=== PATIENT | female | born 1970 | race Caucasian/White ===

== ENCOUNTER 2023-03-07 12:20 | Emergency (ER) | payer OTHER, SELFPAY ==
[2023-03-07 12:26] VITALS: BP 103/78; PULSE 74; RESP 18; TEMP 36.6; O2SAT 98; BMI 27.3
--- NOTE | 2023-03-07 13:55 | ED_ITS ---
HPI - Eye Problem General Date Seen: 03/07/23 Chief complaint: Eye Problems Stated complaint: Block spot in vision Time Seen by Provider: 03/07/23 12:22 Source: patient and family Mode of arrival: ambulatory Limitations: no limitations History of Present Illness HPI Narrative: Patient is a 53-year-old female who for the past 5 days has something in her left vision, when she goes her left eye her right eye is entirely normal, it was bigger but now is smaller almost feels like little dots, whenever she looks around. She notes that there is no pain, redness she has no history getting any thing in her eye, she called the nurses line today they recommended she come to the emergency room despite her saying that they should just have her be seen in eye clinic. He does not wear contacts had Lasix done a number years ago, denies a history of cardiac disease, previous strokes, is a smoker however. She does not have a headache, has had no nausea vomiting, no numbness tingling weakness in the hands or the feet, any problems with the speaking, balance, or other issues. Actually improved somewhat since she has gone through the 5 days. chief complaint: other Onset (ago): day(s) Onset description: sudden Location: left eye Eye Symptoms: blurry vision Place: home Mechanism: none Severity: mild Associated symptoms: none Treatments Prior to Arrival: none Related Data Allergies Allergy/AdvReac Type Severity Reaction Status Date / Time No Known Drug Allergies Allergy Verified 03/07/23 12:26 Review of Systems Status of ROS: Reports: 10 or more systems reviewed and unremarkable except as noted in History and below PFSH PFS Social History Smoking Status: Current every day smoker What tobacco products do you use: cigarettes Smoking packs per day: 1 Smoking cigarettes per day: 20.0 Years smoked: 34 Smoking pack-years: 34.00 Do you use any of these nicotine containing products: None Second hand tobacco smoke exposure: Yes How often do you have a drink containing alcohol: monthly or less How many standard drinks containing alcohol do you have on a typical day: 1 or 2 How often do you have six or more drinks on one occasion: Never AUDIT-C Alcohol total score: 1 Non-prescribed substance use: denies use service: No Exam Narrative: Exam Narrative: Patient is seen and assessed, her visual acuity in the right eye is 20/20 in the left is 20 /50, she can see my face but there is a definitely a spot with her central vision on the left, her right eyes entirely normal, extraocular muscles are normal, fundi look normal to my examination, but she is very constricted, pupils are equal round reactive to light, no pain on ballottement and she feels to be a normal pressures bilaterally. No tenderness along her temporal artery, TMs are normal, cranial nerves 3-12 are entirely normal, she can whistle in her tongue protrudes normal. 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 Visual mcqueen are normal on testing both eyes. Const: Vital Signs, click to edit/add: Vital Signs - 24 hr 03/07/23 12:26 Temperature 97.9 F Pulse Rate [Pulse Oximeter] 74 Respiratory Rate 18 Blood Pressure [Le ft Upper Arm] 103/78 Pulse Oximetry 98 Oxygen Delivery Me thod Room Air Documenting provider has reviewed patient's vital signs: yes Course Course Hospital Course: CRP was normal, given her visual changes are only in 1 eye, I do not think this is the brain issue, as her visual mcqueen are really unaffected. I think this is a primary eye issue, and I think she needs to see a Ophthalmology/Optometry for her dilated eye exam, along with pressures. I did offer her MRI but she declined this. Smoking cessation is also discussed. Local resources are discussed with her. Vital Signs Vital signs: Initial Vital Signs Temperature 97.9 F 03/07/23 12:26 Temperature Source Temporal Artery Scan 03/07/23 12:26 Pulse Rate 74 03/07/23 12:26 Pulse Rhythm Regular 03/07/23 12:26 Respiratory Rate 18 03/07/23 12:26 Blood Pressure 103/78 03/07/23 12:26 Blood Pressure Mean 86 03/07/23 12:26 Pulse Oximetry 98 03/07/23 12:26 Oxygen Delivery Method Room Air 03/07/23 12:26 Vital Signs Temperature 97.9 F 03/07/23 12:26 Pulse Rate 74 03/07/23 12:26 Respiratory Rate 18 03/07/23 12:26 Blood Pressure 103/78 03/07/23 12:26 Pulse Oximetry 98 03/07/23 12:26 Oxygen Delivery Method Room Air 03/07/23 12:26 Temperature 97.9 F 03/07/23 12:26 Pulse Rate 74 03/07/23 12:26 Respiratory Rate 18 03/07/23 12:26 Blood Pressure 103/78 03/07/23 12:26 Pulse Oximetry 98 03/07/23 12:26 Oxygen Delivery Method Room Air 03/07/23 12:26 MDM - Eye Problem MDM Narrative Medical decision making narrative: During this evaluation I considered multiple diagnosis including stroke, foreign body, glaucoma, retinal detachment, retinal abnormalities such as ischemia, verses venous issues. Medical Records Attestation: I reviewed the patient's medical records. Lab Data Attestation: I reviewed the patient's lab results. Labs: Lab Results 03/07/23 Range/Units 13:25 C-Reactive Protein 1.0 (0.5-1.0) mg/dL Discharge Plan Discharge Clinical Impression: Blurry vision, left eye Patient Disposition: Home w/ Parent or Adult Condition: Stable Instructions: Blurred Vision (ED) Additional Instructions: Your test was negative, I think at this point we will discharge home, and have you follow-up with I provider, for formal testing, return here if increasing visual loss, numbness tingling weakness, speech problems, or headaches. Follow Up/Referrals: Provider,Not a Local [Primary Care Provider] - Stand Alone Forms: [facility] Info Instructions
== END 2023-03-07 14:51 | disposition home or self-care (01) ==
PROVIDERS: Emergency Provider Family Medicine
DX: H53.8 Other visual disturbances (principal)
CPT/HCPCS: 36415; 86140; 99283; 99284